=== PATIENT | female | born 1995 | race Hispanic/Latino ===

== ENCOUNTER → 2023-06-26 | Emergency (ER) | payer OTHER, SELFPAY ==
--- OUTSIDE RECORDS SUMMARY | 2023-06-26 14:20 | XMS REPORT | Continuity of Care Document ---
Author Name Unknown Address [address] [facility] [address] [place] [address] [facility] thconnect Address [address] [facility]. [address] [place] [address] Care Team Providers Care Summer Child Caregiver Name Role Phone Estefany Tavera Attending Clinician LIS Colby Attending Clinician UnavailEstefany Turpin Admitting Clinician Dionte e Payers Payer Name Policy Type Policy Number Effective Date Expirati on Date Source Allergies, Adverse Reactions, Alerts Allergy Name Allergy Type Status Severity Reaction(s) Onset Date Inactive Date Treating Clinician Comments Source No Known Allergie s DA Active 06-03 00:00: 00 [facility] NO KNOWN ALLERGIE S Drug Class Active [facility] Procedures Procedure Date / Time Performed Performing Clinicia n Source [id number] 2021-06-03 00:00:00 [facility] [id number] 2021-06-03 00:00:00 [facility] Encounters Start Date/Time End Date/Time Encounter Type Admission Type Attending Clinicians Care Facility Care Department Encounter ID Source 2021-06-03 00:34:00 2021-06-05 13:03:00 Emergency EM Estefany Tavera [facility] OB [id number] 17 [facility] 2019-07-26 08:00:00 2019-07-26 08:00:00 Outpatient LIS KIRK [facility] [id number] [facility] 2019-07-26 08:00:00 2019-07-26 08:00:00 Outpatient R LIS BEY [facility] [id number] [facility] Results Test Description Test Time Test Comments Results Result Co mments Source [id number] 03:20:00* Test Item Value Reference Range Interpretation Comme nts GLUBED (test code = GLUBED) 62 mg/dL 65-110 L AG HEPATITIS B [id number] 03:30:00* Test Item Value Reference Range Interpretation Comme nts AG HEPATITIS B SURFACE (test code = HBSAG) NONREACTIVE NONREACTIVE AB HEPATITIS C [id number] 03:30:00* Test Item Value Reference Range Interpretation Comme nts AB HEPATITIS C (test code = HCVAB) NONREACTIVE NONREACTIVE SIGNAL TO CUTOFF (test code = CUTOFF) <0.02 <0.80 N AB [id number] 03:30:00* Test Item Value Reference Range Interpretation Comme nts AB TREPONEMA (test code = TREPAB) NONREACTIVE NONREACTIVE AB HIV 1 03:30:00* Test Item Value Reference Range Interpretation Comme nts AB HIV 1 2 (test code = GZV57NZ) NONREACTIVE NONREACTIVE Done by [employer] 4th Gen HIV Ag/Ab Combo Screen CBC W/AUTO [id number] 01:02:00* Test Item Value Reference Range Interpretation Comme nts WHITE BLOOD CELL (test code = WBC) 14.9 K/mm3 6.5-12.3 H RED BLOOD CELL (test code = RBC) 4.78 M/mm3 3.51-4.69 H HEMOGLOBIN (test code = HGB) 13.8 g/dL 10.1-13.8 N HEMATOCRIT (test code = HCT) 40.8 % 32.5-41.8 N MEAN CELL VOLUME (test code = MCV) 85.4 fL 84.6-96.6 N MEAN CELL HGB (test code = MCH) 28.9 pg 27.3-33.9 N MEAN CELL HGB CONCETRATION ( test code = MCHC) 33.8 gm/dL 32.0-34.2 N RED CELL DISTRIBUTION WIDTH (test code = RDW) 14.6 % 12.2-16.3 N PLATELET COUNT (test code = PLT) 248 K/mm3 134-363 N MEAN PLATELET VOLUME (test c ode = MPV) 9.9 fL 9.2-12.7 N NEUTROPHIL % (test code = NT%) 76.4 % 57.9-77.3 N LYMPHOCYTE % (test code = LY%) 18.9 % 14.5-29.7 N MONOCYTE % (test code = MO%) 3.8 % 3.6-10.2 N EOSINOPHIL % (test code = EO%) 0.2 % 0.0-3.0 N BASOPHIL % (test code = BA%) 0.1 % 0.1-0.9 N NEUTROPHIL # (test code = NT#) 11.4 K/mm3 LYMPHOCYTE # (test code = LY#) 2.8 K/mm3 MONOCYTE # (test code = MO#) 0.6 K/mm3 EOSINOPHIL # (test code = EO#) 0.03 K/mm3 BASOPHIL # (test code = BA#) 0.0 K/mm3 RBC MORPHOLOGY REQUIRED (bert t code = RBCM) NORMAL NORMAL PLATELET MORPHOLOGY REQUIRED (test code = PLTMR) NORMAL NORMAL COVID 19 Asymptomatic IH [id number] 00:30:00* Test Item Value Reference Range Interpretation Comme nts COVID 19 Asymptomatic IH AG (test code = COVNONPUIAG) NEGATIVE NEGATIVE This test has be en authorized only for the detection ofproteins from SARS-CoV-2, not for any other viruses orpathogens. Negative results should be treated as presumptive andconfirmed with a molecular assay, if necessary for patientmanagement. Negative results do not rule out COVID-19 andshould not be used as the sole basis for treatment orpatient management decisions, including infection controldecisions. Negative results should be considered in thecontext of a patient's recent exposures, history and thepresence of clinical signs and symptoms consistent withCOVID-19. This test has not been FDA cleared or approved; the test hasbeen authorized by FDA under an Emergency Use Authorization(EUA) for use by laboratories certified under the CLIA thatmeet the requirements to perform moderate, high or waivedcomplexity tests. This test is authorized for use at thePoint of Care (POC), i.e., in patient care settingsoperating under a CLIA Certificate of Waiver, Certificate ofCompliance, or Certificate of Accreditation. This test is only authorized for the duration of thedeclaration that circumstances exist justifying theauthorization of emergency use of in vitro diagnostic testsfor detection and/or diagnosis of COVID-19 under Orolghd975(b)(1) of the Act, 21 U.S.C. 360bbb-3(b)(1), unless theauthorization is terminated or revoked sooner. RUPTURE OF [id number] 23:55:00* Test Item Value Reference Range Interpretation Comme nts RUPTURE OF MEMBRANES (test c ode = ROM) RUPTURED Notes Date/Time Note Provider Source 2021-06-04 07:00:00 [id number] [id number] SE/hZjll1bfGhn0JQybkMjqvdUn2795-42-06N81:00:00 [facility] ([facility]OB Postpart Progr NoteREPORT#:[id number] REPORT STATUS: SignedDATE:06/04/21 TIME: 0700 PATIENT: ALEXANDRA RODRÍGUEZ UNIT #: [id number]#: [id number] [address] AGE: 26 SEX: F ATTEND: Estefany Tavera DOADM AUTHOR: Montse Noel MD * ALL edits or amendments must be made on the electronic/computer document * Subjective SubjectiveAdmission EGA: Weeks: 40 Days: 0EGA at delivery (wks/days): 40 weeksStatus/Day: post (day 1)Patient reports: Patient reports: No no complaintsNursing reports: Nursing reports: No complaints Objective Nursing Documentation ReviewNursing Data:The data set between the solid lines has been imported from nursing documentation. Any exceptions have been noted below under Provider comments. Feeding preference: Post hemorrhage risk score: Low Risk for Hemorrhage Provider comments on imported nursing data: [] GeneralVS:Vital Signs: Date Time Temp Pulse Resp B/P B/P Pulse O2 O2 Flow FiO2 Mean Ox Delivery Rate 06/03 2109 103.0 06/03 2109 93 128/86 06/035 106.0 06/03 2034 137/86 06/03 2019 105.0 06/03 2019 93 137/85 06/03 2005 112.0 06/03 2005 91 154/87 06/03 1950 106.0 06/03 1950 94 144/81 06/03 1936 98.0 06/03 1936 88 137/76 06/03 1920 92.0 06/03 1920 84 121/71 06/03 1906 85.0 06/03 1906 98 132/59 06/03 1850 99.4 06/03 1850 94.0 06/03 1850 99 128/70 06/03 1837 98.0 06/03 1837 90.0 06/03 1837 98 128/70 06/03 1821 93.0 06/03 1821 110 148/69 06/03 1807 102.0 06/03 1807 100 130/88 06/03 1751 90.0 06/03 1751 83 119/71 06/03 1736 87.0 06/03 1736 82 113/70 06/03 1721 107.0 06/03 1721 98.2 82 145/84 06/03 1706 103.0 06/03 1706 88 132/85 06/03 1650 107.0 06/03 1650 82 135/88 06/03 1635 101.0 06/03 1635 82 130/82 06/03 1621 100.0 06/03 1621 77 128/83 06/03 1605 98.4 06/03 1605 100.0 06/03 1605 82 123/86 06/03 1559 97.0 06/03 1559 93 126/78 06/03 1554 98.0 06/03 1554 84 124/82 06/03 1549 104.0 06/03 1549 83 134/86 06/03 1544 99.0 06/03 1544 85 126/84 06/03 1540 99.0 06/03 1540 98.4 83 124/85 06/03 1534 102.0 06/03 1534 81 129/84 06/03 1528 103.0 06/03 1528 78 133/85 06/03 1420 98.0 06/03 1420 98.7 85 133/78 06/03 1324 99.0 06/03 1205 98.7 06/03 1123 98.9 06/03 1032 98.6 06/03 0936 89.0 06/03 0936 98.9 89 114/73 06/03 0837 98.6 06/03 0740 87.0 06/03 0740 98.0 99 17 122/71 PATIENT WEIGHT: Weight (lb): 203Weight (oz): 7.79Weight (kg): 92.300 Nutrition assessment:The data set between the solid lines has been imported from the dietitian's assessment. Any exceptions have been noted under Provider comments. BMI Calculated: 34.84Nutrition related diagnosis: Nutrition diagnosis details: Nutrition problem: Nutrition etiology: Nutrition signs and symptoms: Nutrition prescription: Dietitian name: Assessment completed: Provider comments on imported dietitian assessment: Physical ExamAbdomen: no abnormal tendernessUterus: involution appropriateFundus: below the umbilicusLochia: normalLacerations: Perineal laceration(s): NoneLower extremities: Edema: none ResultFindings/Data:Laboratory Tests: 06/03 2106 Chemistry POC Glucose (65 - 110 mg/dL) 62 L Results: labs reviewed, vital signs reviewed Diagnosis, Assessment Plan Diagnosis, Assessment PlanFree text A P:26 yo s/p , PPD#1 Assessment: nml progressPlan: routine care, discharge today at 0705 RPT #:[id number] OF REPORT PRProgress Jvdx2956-73-43H35:00:00F.[id number] able for patient ipdoNYWJLBNHLYGXCT6468-18-98T65:05:35 [facility] 2021-06-03 19:02:00 [id number] +XTzBzP2XTojN3bgVOIgfBrLxypdB Q+4RsCFeNCdozG8rjcVOj94XtEt6116-66-34A80:02:00 [facility] ([facility])OB Delivery NoteREPORT#:[id number] REPORT STATUS: SignedDATE:06/03/21 TIME: 190 PATIENT: ALEXANDRA RODRÍGUEZ UNIT #: [id number]#: [id number] [facility] AGE: 26 SEX: F ATTEND: Estefany Tavera DOADM AUTHOR: Montse Noel MD * ALL edits or amendments must be made on the electronic/computer document * OB Delivery Pre-deliveryGBS status: GBS status: negativeNewborn evaluation at delivery: NRP certified personnelAdmission EGA: Weeks: 40 Days: 0EGA at delivery (wks/days): 40 weeksAdmission indication:26 yo at 40w0d admitted with srom for augmentation of labor Baby A InformationBaby A information Delivery date: 06/03/21 Delivery time: 1844 status: live born Wt of baby: not yet available Gender: female 1 minute: 8 5 minutes: 9 Presentation: vertex Anomalies:noneABG details Baby A Cord blood gases: not collectedNuchal cord Baby A Nuchal cord: no Vaginal DeliveryVaginal delivery: Labor: augmented Medications/Devices used: oxytocin Vaginal delivery: spontaneous Amniotic fluid: clear Anesthesia type: epidural anesthesia Episiotomy: none Laceration repair: no Placenta: spontaneous, expressed, intact Post delivery meds used: oxytocin, methergine, cytotec Count: correct Vaginal packing: No Mother's condition: mother stable 's condition: stable in roomLacerations: Perineal laceration(s): NoneExtraction details OVD performed: noShoulder dystocia present: noAdditional comments:patient with hx of PPH, noted brisk bleeding after delivery of placenta. Used uterine massage, methergine x 1 dose and cytotec 800mcg IA. Bleeding resolved Blood Loss/DetailsBlood loss at delivery: no more than expectedEBL at delivery (ml's): 400 at 1906 RPT #:[id number] OF REPORT OBObstetric vbvt6600-03-03A28:02:00F.[id number] able for patient xuflMHPQPSSIIDLNMC5420-70-44W20:06:45 [facility] 2021-06-03 15:32:00 [id number]+[id number] M13vJLPnbFTHWIgaGl8DObC2dK8ho gP7DNsewYihZ4JzwMRvPlobKi3y0605-72-01T63:32:00 [facility])Clinical NoteREPORT#:[id number] REPORT STATUS: SignedDATE:06/03/21 TIME: 153 PATIENT: ALEXANDRA RODRÍGUEZ UNIT #: [id number]#: [id number] ROOM/BED: 002-ADOB: [birth year] AGE: 26 SEX: F ATTEND: Estefany Tavera DOADM AUTHOR: Montse Noel MD * ALL edits or amendments must be made on the electronic/computer document * Clinical NoteNote:26 yo at 40w0d admitted with lof for augmentation of laborS: no acute concerns or complaintsO: Vitals WNL, cervix 6/70/-2, FHR Cat IA/P: -IUPC placed, goal MVU 354-084-uyhkwstdg expect cervical change in next 4hrs with IUPC in place-anticipate , will continue to monitor at 1535 RPT #:[id number] OF REPORT CLClinical qirc7258-84-70S35:32:00F.URMQ14547886-2883KYVxhem able for patient zzmpMXXBGJPCEXRBEM9727-27-20M56:35:30 [facility] 2021-06-03 07:56:00 [id number] ajXjT5iNn2mSPDiH6FOw1EnCceEg2 9p5ZIN+lxCzBo8txyKKhGN1nN739110-92-61M56:56:00 [facility] ([facility])OB Intrapart Prog NoteREPORT#:[id number] REPORT STATUS: SignedDATE:06/03/21 TIME: 0756 PATIENT: ALEXANDRA RODRÍGUEZ UNIT #: [id number]#: [id number] [facility] [birth year] AGE: 26 SEX: F ATTEND: Estefany Tavera DOADM AUTHOR: Melissa Brown MD * ALL edits or amendments must be made on the electronic/computer document * Subjective SubjectiveAdmission EGA: Weeks: 40 Days: 0Patient reports: Patient reports: Yes: contractions. No: complaints. Objective Nursing Documentation ReviewNursing data:Vital Signs Date Temp Pulse Resp B/P B/P Mean Pulse Ox FiO2 06/03 98.1-98.4 93 18 127/94 106.0 The data set between the solid lines has been imported from nursing documentation. Any exceptions have been noted below under Provider comments. ROM date: ROM time: Provider comments on imported nursing data: [] ObjectiveCervical/ exam: Dilatation (cm): 6 Effacement (%): 60 station: - 3 presentation: cephalicUterine activity: Monitor: toco Frequency (description): regularCurrent oxytocin: Indication: augmentation Infusion rate: 6.00Procedures: artificial rupture memb (forebag) FHR EvaluationBaby A: Baby A FHR category: category 1 Diagnosis, Assessment PlanAssessment: normal FHR pattern, slow progress of laborPlan: anticipate vag delivery, continue current managmnt at 0758 [facility] #:[id number] OF REPORT PRProgress Rgdh5513-46-40V18:56:00F.[id number] able for patient uarwYJZSNJJVCZVPXN8825-25-72M58:59:14 [facility] 2021-06-03 07:53:00 [id number] EcIdoCIaNR5foeYfVFUm5FO9PPiJ9 62ec4DK6Mp/i7F96m4SRT+Oq+z94459-83-54O79:53:00 [facility] ([facility])OB Admission / H PREPORT#:[id number] REPORT STATUS: SignedDATE:06/03/21 TIME: 0753 PATIENT: ALEXANDRA RODRÍGUEZ UNIT #: [id number]#: [id number] [facility] [birth year] AGE: 26 SEX: F ATTEND: Estefany Tavera DOADM AUTHOR: Melissa Brown MD * ALL edits or amendments must be made on the electronic/computer document * OB HistoryChief complaint: suspected ruptured membHPI: @ 40 wk with LOFPregnancy history: : 2 Term: 1 Living children: 1Current : Admission EGA (weeks) 40 Admission EGA (days) 0Labs: Blood type: O Rh: positive Rubella: immune Hepatitis B: negative HIV: negative STD: negative Syphilis: currently negative GBS: negative Past HistoryPast Medical History:Denies: Alcoholism/subst abuse, Anemia, Arthritis, Asthma, Atrial fibrillation, Cancer, Congestive heart failure, COPD, Coronary artery disease, Dementia, Depression/mood disorder, Diabetes mellitus, GERD/gastritis, Hypertension, Kidney disease/stones, Seizure disorder, Transient ischemic attack, , Abdominal aortic aneurysm, ADD/ADHD, AIDS, Angina pectoris, Anticoagulant therapy, Atrial flutter, Bleeding disorder, BPH, C diff colitis, Cardiac dysrhythmias, Chronic pain, Cirrhosis, Congenital anomalies, Dyslipidemia, Gallbladder dis/stones, GI bleed, Glaucoma, Headache disorder, Hepatitis, HIV, Intracranial hemorrhage, Ischemic stroke, Motor dysfunction, Pancreatitis, Peptic ulcer disease, Periph arterial disease, Pressure ulcer, Prior MD, Schizophrenia, Sickle cell disease, Steroid use, Thyroid disorder, Transfusion history, Tuberculosis, Urinary tract infection, Venous thromboembolism. Past Surgical History:Denies: Abdominal surgery, Appendectomy, Bariatric procedure, CABG, Carotid endarterectomy, Cholecystectomy, , Dialysis shunt/AV fistula, Heart valve procedure, Hernia repair, Hysterectomy, Pacemaker, Spine surgery, Splenectomy, Tonsillectomy, Transplant recipient, Vascular procedure, , Amputation, Anesthesia complications, Bilateral tubal ligation,Bladder surgery, Breast biopsy/procedure, Carpal tunnel release, Cranial procedure, D C, Eye surgery, Feeding tube, Hip procedure, ICD, Indwelling IV catheter, Knee procedure, Lithotripsy, Lung surgery, Nephrectomy, PCI, Prostate surgery, Thyroidectomy, Tracheotomy, [employer] shunt. Family HistoryReports: Diabetes. Alcohol Use Denies EtOH useSmoking status: Smoking status for patients 13 years old or older: Never SmokerAllergies:Coded Allergies:No Known Allergies (06/03/21) Review of SystemsAll systems rev neg: except as marked Objective GeneralVS:Last Documented: Result Date Time Temp 98.3 06/03 0604 Resp 18 06/03 0147 B/P Mean 106.0 06/03 0146 B/P 127/94 06/03 0146 Pulse 93 06/03 0146 Vital Signs Date Temp Pulse Resp B/P B/P Mean Pulse Ox FiO2 06/03 98.1-98.4 93 18 127/94 106.0 PATIENT WEIGHT: Weight (lb): 203Weight (oz): 7.79Weight (kg): 92.300 Physical ExamHEENT: normocephalic w/o injury, pupils equalCardiac: regular rate and rhythmLungs: clear to auscultationAbdomen: gravid, no abnormal tenderness, no guardingUterine activity: Monitor: tocoPelvic exam: Pelvis clinically adequate: yes, inlet appears appropriate, pubic bone configappropr, no midpelvic contractionCervical/ exam: Dilatation (cm): 4 Effacement (%): 60 Est wt (gms): 3500 station: - 3 presentation: cephalicMembranes: Membranes: SROMLower extremities: Edema: traceBaby A: Baby A FHR category: category 1 Diagnosis, Assessment Plan Diagnosis, Assessment PlanAssessment/Impression: spont.active labor>39 wksPlan: admit to observation, delivery at 0756 RPT #:[id number] OF REPORT HPHistory and physical fggdkodhabp9837-91-05T93:53:00F.[id number] AVAvailable for patient weskCXKSKJRMIVPPFL0786-12-62Q22:57:14 [facility]
[2023-06-26 15:01] LABS: Specific Gravity 1.011 (1.005-1.030)
[2023-06-26 15:09] LABS: Specific Gravity 1.011 (1.005-1.030); Urine Bacteria <20 /HPF (<20); Urine Bilirubin NEGATIVE (Negative); Urine Blood 3+ (OVER) (Negative); Urine Clarity Turbid (Clear); Urine Color Light-Yellow (Yellow); Urine Glucose NEGATIVE (Negative); Urine Mucus Slight /HPF (None Seen); Urine Protein NEGATIVE (Negative); Urine Urobilinogen Normal (Normal)
--- NOTE | 2023-06-26 15:38 | RAD REPORT ---
EXAM DESCRIPTION: US - Transvaginal OB - 06/26/2023 3:29 pm CLINICAL HISTORY: ABD PAIN COMPARISON: No comparisons FINDINGS: Irregular shape of the gestational sac identified. A yolk sac is present. The gestational sac measures 2 cm. Possible pole measuring 5 millimeters which would be consistent with a 6 wee k 1 day gestation. No heart tones identified. A subchorionic hemorrhage is present measuring le ss than 25% of the surface area of the gestational sac. Both ovaries demonstrate vascular flow. Corpus luteum in the right ovary. The right ovary measures 3. 8 x 1.9 x 2 cm. The left ovary measures 2.8 x 1.5 x 1.1 cm. No free fluid. IMPRESSION: Single IUP identified with small subchorionic hemorrhage. No heart tones identifie d which may be due to early dates. In addition, the gestational sac has a slightly abnormal morpholog y. Recommend short-term follow-up ultrasound to ensure normal IUP. Bilateral ovarian blood flow is present.
[2023-06-26 15:49] LABS: Absolute Lymphocytes (CBC) 3.6 K/uL (0.7-4.9); Hematocrit 39.7 % (36.0-45.0); Lymphocytes % 37.2 % (15.3-44.8); MCV 80.6 fL (80-100); MPV 7.6 fL (7.6-11.3); Platelets 350 thou/uL (152-406); RBC Red Blood Cell Count 4.92 M/uL (3.86-4.86)
[2023-06-26 16:12] LABS: Potassium 3.9 mEq/L (3.5-5.1)
--- NOTE | 2023-06-26 16:20 | ER ---
Nurse's Notes [facility] Name: Joe Palma Age: 28 yrs Sex: Female : 1995 Arrival Date: 06/26/2023 Time: 14:17 Bed 15 Private MD: Diagnosis: Threatened Presentation: 06/26 14:30 Chief complaint: Patient states: Vaginal bleeding, told she was 6 wks nj1 Wednesday at OB's office. Started having spotting and was advised to come to ED if there was more bleeding. Pt states she started bleeding more today with slight cramping. . 14:30 Coronavirus screen: Vaccine status: Patient reports receiving the 2nd dose of the covid nj1 vaccine. Ebola Screen: Patient denies travel to an Ebola-affected area in the 21 days before illness onset. Initial Sepsis Screen: Does the patient meet any 2 criteria? No. Patient's initial sepsis screen is negative. Does the patient have a suspected source of infection? No. Patient's initial sepsis screen is negative. Risk Assessment: Do you want to hurt yourself or someone else? Patient reports no desire to harm self or others. Onset of symptoms was June 26, 2023. 14:30 Method Of Arrival: Ambulatory [facility] 14:30 Acuity: EVON 3 nj1 Historical: - Allergies: 14:48 No Known Allergies; nj1 - PMHx: 14:48 None; nj1 - Immunization history:: Client reports receiving the 2nd dose of the Covid vaccine. - Social history:: Smoking status: Patient denies any tobacco usage or history of. Screenin:20 [facility] ED Fall Risk Assessment (Adult) History of falling in the last 3 months, ko1 including since admission No falls in past 3 months (0 pts) Confusion or Disorientation No (0 pts) Intoxicated or Sedated No (0 pts) Impaired Gait No (0 pts) Mobility Assist Device Used No (0 pt) Altered Elimination No (0 pt) Score/Fall Risk Level 0 - 2 = Low Risk Oriented to surroundings, Maintained a safe environment, Educated pt \T\ family on fall prevention, incl call for assistance when getting out of bed, Assessed \T\ reinforced patient's understanding of fall precautions, Provided non-skid footwear, Hourly rounding (assess needs \T\ fall precautionary measures) done, Used ambulatory aids as needed (educated on \T\ assisted with), Used gait belt as appropriate. Abuse screen: Denies threats or abuse. Denies injuries from another. Nutritional screening: No deficits noted. Tuberculosis screening: No symptoms or risk factors identified. Assessment: 15:20 General: Appears in no apparent distress. Behavior is calm, cooperative, appropriate ko1 for age. Pain: Complains of pain in abdomen. GI: Bowel sounds present X 4 quads. Abd is soft and non tender X 4 quads. Vital Signs: 14:30 BP 133 / 91; Pulse 70; Resp 16; Temp 98.2(O); Pulse Ox 100% on R/A; Weight 81.65 kg; nj1 Height 5 ft. 4 in. ; Pain /10; 15:20 BP 128 / 88; Pulse 74; Resp 15; Pulse Ox 100% ; ko1 16:36 BP 118 / 80; Pulse 70; Resp 15; Pulse Ox 100% ; ko1 14:30 Body Mass Index 30.90 (81.65 kg, 162.56 cm) nj1 14:30 Pain Scale: Adult [facility] ED Course: 14:22 Patient arrived in ED. ts1 14:22 Johnna Espitia FNP-C [facility]. kb 14:22 Ramon Silveira MD is Attending Physician. kb 14:33 Yessi Márquez, BECK is Primary Nurse. ko1 14:48 Triage completed. nj1 14:48 Test, Urine Sent. ko1 14:48 Urinalysis w/ reflexes Sent. ko1 14:48 Arm band placed on. nj1 15:20 Patient has correct armband on for positive identification. Placed in gown. Bed in low ko1 position. Call light in reach. Side rails up X 1. Pulse ox on. NIBP on. Door closed. Noise minimized. Lights dimmed. Warm blanket given. 15:25 Inserted saline lock: 20 gauge in left antecubital area, using aseptic technique. Blood ko1 collected. 15:28 Abo/rh Typing Sent. ko1 15:28 Basic Metabolic Panel Sent. ko1 15:28 CBC with Diff Sent. ko1 15:28 Quantitative Hcg Sent. ko1 15:31 US Transvaginal Ob In Process Unspecified. EDMS 16:36 No provider procedures requiring assistance completed. IV discontinued, intact, ko1 bleeding controlled, No redness/swelling at site. Pressure dressing applied. 16:36 Provided Education on: NA. ko1 Administered Medications: No medications were administered Medication: 15:20 VIS not applicable for this client. ko1 Outcome: 16:19 Discharge ordered by . frantz 16:36 Discharged to home ambulatory, with family, ko1 16:36 Condition: stable 16:36 Discharge instructions given to patient, family, Instructed on discharge instructions, follow up and referral plans. Demonstrated understanding of instructions, follow-up care, 16:38 Patient left the ED. ko1 Signatures: Dispatcher [employer] EDMN Johnna Espitia, METEOROLOGIST LIAISON-C METEOROLOGIST LIAISON-CkYessi Mead RN RN ko1 Lisa Beckham RN RN nj1 Chantelle Pereira, PAS PAS ts1
--- NOTE | 2023-06-26 16:20 | EDPHYS ---
Physician Documentation [facility] Name: Joe Palma Age: 28 yrs Sex: Female : 1995 Arrival Date: 06/26/2023 Time: 14:17 Bed 15 Private MD: ED Physician Ramon Silveira HPI: 06/26 15:55 This 28 yrs old Female presents to ER via Ambulatory with complaints of kb Abdominal Pain, 6Wks preg. 15:55 Pt is a 28 year old female who presents for vaginal bleeding. States she started kb spotting 4 days ago and passed a blood clot just [employer]. States she has been in contact with her OB about this, had an US last week and is scheduled to go back next week, but was told to come to the ER if the bleeding became more than spotting. LMP 04/19/23. A0. Historical: - Allergies: 14:48 No Known Allergies; nj1 - PMHx: 14:48 None; nj1 - Immunization history:: Client reports receiving the 2nd dose of the Covid vaccine. - Social history:: Smoking status: Patient denies any tobacco usage or history of. ROS: 15:55 Constitutional: Negative for fever, chills, and weight loss, kb 15:55 : Positive for vaginal bleeding, 15:55 All other systems are negative, Exam: 15:55 Constitutional: This is a well developed, well nourished patient who is awake, alert, kb and in no acute distress. Head/Face: Normocephalic, atraumatic. ENT: Moist Mucous membranes Cardiovascular: Regular rate Respiratory: Respirations even and unlabored. No increased work of breathing. Talking in full sentences Abdomen/GI: Soft, non-tender. No distention Skin: Warm, dry with normal turgor. Normal color. MS/ Extremity: Pulses equal, no cyanosis. Neurovascular intact. Full, normal range of motion. Neuro: Awake and alert, GCS 15, oriented to person, place, time, and situation. Moves all extremities. Normal gait. Vital Signs: 14:30 BP 133 / 91; Pulse 70; Resp 16; Temp 98.2(O); Pulse Ox 100% on R/A; Weight 81.65 kg; nj1 Height 5 ft. 4 in. ; Pain 1/10; 15:20 BP 128 / 88; Pulse 74; Resp 15; Pulse Ox 100% ; ko1 16:36 BP 118 / 80; Pulse 70; Resp 15; Pulse Ox 100% ; ko1 14:30 Body Mass Index 30.90 (81.65 kg, 162.56 cm) nj1 14:30 Pain Scale: Adult nj1 MDM: 14:22 Patient medically screened. kb 15:55 Data reviewed: vital signs, nurses notes. kb 16:19 Differential diagnosis: threatened Ab, inevitable Ab, complete Ab, retained Ab. kb Counseling: I had a detailed discussion with the patient and/or guardian regarding the historical points, exam findings, and any diagnostic results supporting the discharge/admit diagnosis, lab results, radiology results, the need for outpatient follow up, an OB/Gyne specialist, to return to the emergency department if symptoms worsen or persist or if there are any questions or concerns that arise at home. 06/26 14:23 Order name: Abo/rh Typing; Complete Time: 15:57 kb 06/26 14:23 Order name: Basic Metabolic Panel; Complete Time: 16:13 kb 06/26 14:23 Order name: CBC with Diff; Complete Time: 16:10 kb 06/26 14:23 Order name: Test, Urine; Complete Time: 15:04 kb 06/26 14:23 Order name: Quantitative Hcg; Complete Time: 16:13 kb 06/26 14:23 Order name: Urinalysis w/ reflexes; Complete Time: 15:12 kb 06/26 14:23 Order name: US Transvaginal Ob; Complete Time: 15:41 kb 06/26 14:23 Order name: IV Saline Lock; Complete Time: 15:28 kb 06/26 14:23 Order name: Labs collected and sent; Complete Time: 15:28 kb 06/26 14:23 Order name: NPO; Complete Time: 14:34 kb Administered Medications: No medications were administered Disposition Summary: 06/26/23 16:19 Discharge Ordered Notes: Location: Home kb Condition: Stable kb Diagnosis - Threatened kb Followup: kb - With: Emergency Department - When: As needed - Reason: Worsening of condition Followup: kb - With: Private Physician - When: 2 - 3 days - Reason: Recheck today's complaints, Continuance of care, Re-evaluation by your physician Discharge Instructions: - Discharge Summary Sheet kb - Threatened Miscarriage, [id number] kb - Vaginal Bleeding During , First Trimester, [id number] kb Forms: - Medication Reconciliation Form kb - Thank You Letter kb - Antibiotic Education kb - Prescription Opioid Use kb - Patient Portal Instructions kb - Leadership Thank You Letter kb Signatures: Dispatcher [employer] Johnna Acosta, TIANC Lisa Harrington, RN RN nj1
[2023-06-26 16:58] VITALS: BP 118/80; TEMP 98.2; O2SAT 100
== END ==
LOC: ER 14:17
DX: O20.0 Threatened abortion (principal); Z3A.01 Less than 8 weeks gestation of pregnancy
CPT/HCPCS: 36415; 76817; 80048; 81001; 81025; 84702; 85025; 86900; 86901; 99284